=== PATIENT | male | born 1960 | race Caucasian/White ===

== ENCOUNTER 2019-10-04 15:47 | Inpatient (IN) | payer MEDICARE, MEDICAID ==
[2019-10-04] MEDS ORDERED: VISTARIL50 MG PO (17:51)
[2019-10-04] MEDS ORDERED: REMERON15 M2 PO (17:52)
[2019-10-04] MEDS ORDERED: NUPLAZID34 MG PO (17:52)
[2019-10-04] MEDS ORDERED: EXEL13.31 TD (17:54)
[2019-10-04] MEDS ORDERED: MOTRIN 600 MG E4 TAB PO (17:55)
[2019-10-04] MEDS ORDERED: BACLOFEN20 M1 PO (17:56)
[2019-10-04] MEDS ORDERED: BIOFREEZE118 ML T (17:57)
[2019-10-04] MEDS ORDERED: DEPAKOTE SPRIN125 MG PO ×2 (17:58→17:59)
[2019-10-04] MEDS ORDERED: ENTACAPONE200 M1 PO (18:00)
[2019-10-04] MEDS ORDERED: MIRALAX POWDER17 G1 PO (18:01)
[2019-10-04] MEDS ORDERED: LASIX20 MG PO (18:01)
[2019-10-04] MEDS ORDERED: MULTIVITAMINS1 EAC5 PO (18:02)
[2019-10-04] MEDS ORDERED: SINEMET 25-1001 EACH PO (18:04)
[2019-10-04 21:02] VITALS: BP 101/52
--- NOTE | 2019-10-04 21:02 | NUR ---
ROSEMARIE TYSON II a 59 year old M admitted via stretcher from the ADMITTING as a voluntary admission. Arrived on unit at 2101. ALLERGIES: NKA. Vital signs are: 98.1-78-18 101/52. The PATIENT'S POA GAVE VERBAL CONSENT FOR THE following forms with stated understanding: Authorization For The Release of Medical Information, Consent to Voluntary Admission and Hospitalization, Consent and Release Forms/Receipt of Rights, Acknowledgement of Advance Directive Information, Behavioral Health Consent Form, and Informed Consent of Medications. Admitted under the services of ROSEMARIE Dorman MD. A search was conducted and hazardous articles were removed. Client was oriented to the unit. JI BLANTON PATIENT CLOTHING LIST SIGNED BY MENTAL HEALTH WORKER AND THIS NURSE. PATIENT BROUGHT TO FLOOR BY [facility] X 1. PATIENT FROM [facility] AND THEN TRANSFERRED TO [facility]. PATIENT WITH BILATERAL SOFT HEELS. PATIENT WITH AREA TO RIGHT LATERAL AREA AND WITH DRY, FLAKY, FIRM SKIN TO LEFT LATERAL FOOT. PATIENT WITH BILATERAL BUNION AREAS WITH THICK, FLAKY SKIN. BILATERAL UPPER AND LOWER EXTREMITIES WITH SCATTERED SCABS AND AND SCATTERED ECCHYMOTIC AREAS IN VARIOUS STAGES OF HEALING. PATIENT WITH LEFT BLACK EYE. PATIENT WITH REDDEND BUTTOCKS. PATIENT WITH BILATERAL CONTRACTED HANDS. PATIENT WITH ABRASION TO LEFT HIP AREA. PHOTOGRAPH OF RIGHT LATERAL HEEL TAKEN ON ADMISSION
--- NOTE | 2019-10-04 21:38 | NUR ---
DR DAVILA UPDATED ABOUT PATIENT ADMISSION ON UNIT. PATIENT PLACED UNDER DR CALDWELL FOR MEDICAL MANAGEMENT
--- NOTE | 2019-10-04 21:50 | NUR ---
DR DAVILA ON UNIT TO SEE PATIENT. DR DAVILA AWARE OF SKIN CONCERNS AND TO PUT IN TREATMENT ORDERS. DR DAVILA SEEN AREA TO RIGHT LATERAL HEEL AND STAGED AREA DEEP TISSUE INJURY
--- NOTE | 2019-10-04 21:50 | NUR ---
DR DAVILA ON UNIT TO SEE PATIENT. DR DAVILA AWARE OF SKIN CONCERNS AND TO PUT IN TREATMENT ORDERS
--- NOTE | 2019-10-05 05:22 | NUR ---
JAH VICTORROSEMARIE [id number] Please refer to the physician's history and physical for past medical history, comorbid conditions, and allergies. Diagnosis: INTERMITTENT EXPLOSIVE DISORDER Barry Score: 15,AT RISK WOUND DESCRIPTIONS: Wound Number: 1 Location of the wound: right heel lateral aspect Type of wound: Unstageable Thickness: Full Size: 3.5cm x 2.5cm x <0.1cm Tunneling: none Undermining: none Sinus Tract: none Presence of Exudate: none Amount: None Color: Brown, red Odor: None Periwound Skin Appearance: Normal Wound edges: closed Pain (associated with wound): none at time of assessment How does patient state this happened? pt unable to state how this happened Wound Number: 2 Location of the wound: right plantar foot medial aspect Type of wound: unstageable ( hyperkeratotic ) Thickness: Full Size: 4.5cm x 3.7cm x <0.1cm Tunneling: none Undermining: none Sinus Tract: none Presence of Exudate: None Amount: None Color: [place] Odor: None Periwound Skin Appearance: Normal Wound edges: closed Pain (associated with wound): none at time of assessment How does patient state this happened? pt unable to state how this happened Wound Number: 3 Location of the wound: left plantar foot medial aspect Type of wound: unstageable ( hyperkeratotic ) Thickness: Full Size: 3.5cm x 3.5cm x <0.1cm Tunneling: none Undermining: none Sinus Tract: none Presence of Exudate: none Amount: None Color: [place] Odor: None Periwound Skin Appearance: Normal Wound edges: closed Pain (associated with wound): none at time of assessment How does patient state this happened? pt unable to state how this happened Wound Number: 4 Location of the wound: sacrum Type of wound: scar tissue Size: 5.0cm x 7.0cm x <0.1cm Tunneling: none Undermining: none Sinus Tract: none Presence of Exudate: none Amount: None Color: Red blanchable Odor: None Periwound Skin Appearance: Normal Wound edges: closed Pain (associated with wound): none at time of assessment How does patient state this happened? pt unable to state how this happened Patient has red blanchable area note to left hip. No drainage at time of assessment. No odor at time of assessment. Patient unable to state how this happend but has had multiple falls per who spoke with nurse caring for the patient. Patient has multiple scabbed areas noted to bilateral upper and bilateral lower extremities. No open areas noted at time of assessment. Patient also has ecchymotic areas noted to bilateral upper and bilateral lower extremities. Patient has ecchymotic area noted to left eye at time of assessment. Bilateral hands are contracted at time of assessment right more so than the left. Patient has several areas that are red and blanchable at time of assessment. Musty odor noted to left hand more so than the right hand. No drainage at time of assessment. Wash clothes provided for bilateral hands and 2x2 put in between fingers at time of assessment. Surface the patient is resting on: Proform SKIN PREVENTION RECOMMENDATION: 1. Pressure redistribution support surface as appropriate 2. Elevate heels 3. Remove boots/TEDS every shift and reapply 4. Head of bed 30 degrees as tolerated 5. Assess nutrition and hydration 6. Manage moisture 7. Avoid the use of containment devices while in bed 8. Use absorptive products on surfaces limit layers of linens on bed 9. Turn and reposition every 1-2 hours in bed and every 1 hour in chair as tolerated 10. Weight shifts every 15 minutes while up in chair 11. Offloading with pillows or device to keep heels elevated off bed 12. Monitor skin at least every shift 13. Inspect under medical devices twice a day WOUND TREATMENT RECOMMENDATIONS: Continue heel raiser pro boots to bilateral feet while in bed. Arterial studies to bilateral lower extremities Consult podaitry for possible debridement if stuides allow to right plantar and left plantar medial aspects of feet. Cleanse bilateral feet with soap and water and apply lac-hydrin bid. Consult PT and OT for bilateral hand contractures. Unstageable guidelines: Apply betadine to right lateral aspect of heel and cover with dsd daily and prn for soiling.
--- NOTE | 2019-10-05 06:46 | NUR ---
PATIENT SLEPT 6 HOURS OF INTERRUPTED SLEEP THROUGHOUT SHIFT. Q 15 MINUTE CHECKS MAINTAINED. 24 HR chart check completed.
[2019-10-05 06:53] LABS: BASO % 0.5 % (0.0-1.0); EOS # 0.1 10*3/uL (0.0-0.4); EOS % 1.5 % (1.0-4.0); HEMOGLOBIN 11.6 g/dl (14.0-18.0); LYMPH # 1.6 10*3/uL (1.3-4.4); LYMPH % 22.1 % (27.0-41.0); MEAN CELL VOLUME 104.2 fl (80.0-94.0); MEAN CORPUSCULAR HGB 34.5 pg (27.0-31.0); MEAN CORPUSCULAR HGB CONC 33.1 g/dl (33.0-37.0); MEAN PLATELET VOLUME 9.9 fl (9.6-12.3); MONO # 0.6 10*3/uL (0.1-1.0); MONO % 8.7 % (3.0-9.0); NEUT # 4.9 10*3/uL (2.3-7.9); NEUT % 66.9 % (47.0-73.0); PLATELET COUNT AUTOMATED 255 10*3/uL (130-400); RED BLOOD COUNT 3.36 10*6/uL (4.50-5.90); RED CELL DISTRI WIDTH 12.5 % (0-14.5); WHITE BLOOD COUNT 7.3 10*3/uL (4.8-10.8)
[2019-10-05 07:08] LABS: ALBUMIN 3.5 gm/dl (3.1-4.5); ALKALINE PHOSPHATASE 65 U/L (45-117); BUN 25 mg/dl (7-24); CHLORIDE 110 mmol/L (98-107); CHOLESTEROL 113 mg/dL (<200); CREATININE 0.63 mg/dL (0.70-1.30); HDL CHOLESTEROL 36 mg/dl (40-60); LDL CHOLESTEROL 65 mg/dL (9-159); SGOT/AST 10 IU/L (3-35); SGPT/ALT 19 U/L (12-78); SODIUM 143 mmol/L (136-145); TOTAL PROTEIN 6.8 gm/dL (6.4-8.2); TRIGLYCERIDES 62 mg/dl (<150); VLDL CHOLESTEROL 12 mg/dL (6-40)
[2019-10-05 08:00] VITALS: BP 130/82
--- NOTE | 2019-10-05 08:15 | NUR ---
Treatment Plan meeting was held with ANA Medley, RN, AT, COMMISSIONER OF INTERNAL REVENUE-S and Line Up Examiner in attendance. Plan for discharge next week. Pt. came to [facility] from [facility]. Will reach out to facility today to discuss discharge planning.
--- NOTE | 2019-10-05 08:20 | NUR ---
PHYSICAL THERAPY Screen received if pt has a decline in functional status please consult PT Josefina Edouard PT
[2019-10-05 09:40] LABS: VITAMIN D, 25-HYDROXY 27.4 ng/mL (30-100)
--- NOTE | 2019-10-05 11:20 | NUR ---
Patient not available for Occupational Therapy evaluation as he is in group therapy session. Daniela De Los Santos OTR/l
--- NOTE | 2019-10-05 11:26 | NUR ---
Dr. Bridges notified of wound care recommendations.
--- NOTE | 2019-10-05 11:38 | NUR ---
AM GROUP PT DID NOT ATTEND MORNING GROUP THERAPY. PT WAS IN BED RESTING
--- NOTE | 2019-10-05 11:52 | NUR ---
ALERT TO SELF WITH CONFUSION NOTED. NO HALLUCINATIONS OR DELUSIONS NOTED. NO SI/HI NOTED. PT SLEPT THE MAJORITY OF THE MORNING WITH AWAKENING FOR MEDICATIONS AND EATING. AMMONIA LEVEL ELEVATED. DENY RUIZ, ANA UPDATED. NEW ORDER RECEIVED. NO AGITATION OR AGGRESSIVENESS NOTED. PT DOES NOT APPEAR TO BE ABLE TO WALK. ASSISTED AND TRANSFERRED X 2 STAFF. FEEDING SELF AT THIS TIME. PODIATRY CONSULTED FOR NAIL CARE. FALL AND ASSULATIVE PRECAUTIONS MAINTAINED. BEHAVIORS MONITORED WITH Q15 MINUTE SAFETY CHECKS. SEE [facility] FLOWSHEET FOR SPECIFIC MONITORING.
--- NOTE | 2019-10-05 12:34 | NUR ---
Spoke with Judi in admissions at [facility] to discuss discharge Planning. Pt. is [facility] and will return to facility at discharge. Pt. was nursing home care at facility and was receiving no therapies at time of discharge.
--- NOTE | 2019-10-05 15:25 | NUR ---
Nursing screen and occupational therapy referral received. Thank you. Daniela De Los Santos OTR/l
--- NOTE | 2019-10-05 15:33 | NUR ---
PM GROUP/MOVIE PT WAS PRESENT FOR AFTERNOON GROUP THERAPY RECLINED IN A FELIX CHAIR WATCHING THE MOVIE. PT WOULD CALL ME OVER AND ASK SOMETHING BUT I WAS UNABLE TO UNDERSTAND HIM.
--- NOTE | 2019-10-05 15:47 | NUR ---
Met with pt and pt's Rosa briefly. RN was also present. Rosa provided some of pt's history. RN was in the process of answering Rosa's questions when this typewriter assembly and parts inspector excused herself from the room.
[2019-10-05 20:00] VITALS: BP 135/63
--- NOTE | 2019-10-05 23:25 | NUR ---
P-CONFUSION I-REDIRECTION WITH 1:1 THERAPEUTIC INTERVENTIONS AND PRESENT REALITY. EDUCATE AND ENCOURAGE MEDICATION COMPLIANCE R-PATIENT MEDICATION COMPLIANT. PATIENT CONTINUES TO WEAR BILATERAL HEEL PROTECTORS AND FEET ARE ELEVATED. PATIENT PROVIDED NOURISHMENT AND FLUIDS AT HS. PATIENT WITH SOFT, NONSENSICAL SPEECH AT HS. PATIENT INTERACTING WITH NURSING STAFF. PATIENT TURNED AND REPOSITIONED IN BED P-CONTINUE TO ENCOURAGE MEDICATION COMPLIANCE, CONTINUE TO PRESENT REALITY, ENCOURAGE GROUP THERAPY WHILE AWAKE
--- NOTE | 2019-10-06 06:05 | NUR ---
PATIENT SLEPT 4 HOURS OF INTERRUPTED SLEEP THROUGHOUT SHIFT. Q 15 MINUTE CHECKS MAINTAINED. 24 HR chart check completed.
--- NOTE | 2019-10-06 06:54 | NUR ---
URINE SPECIMEN COLLECTED VIA STRAIGHT CATH. STERILE ATTEMPT X 1. URINE YELLOW WITH OUTPUT OF 100ML. PATIENT TOLERATED WITHOUT DIFFICULTY. PATIENT INCONTINENT OF BLADDER PRIOR TO CATHERIZATION FOR SPECIMEN COLLECTION
[2019-10-06 07:07] LABS: BILIRUBIN NEGATIVE (NEGATIVE); BLOOD NEGATIVE (NEGATIVE); CLARITY SL CLOUDY (CLEAR); COLOR YELLOW (YELLOW); GLUCOSE NEGATIVE (NEGATIVE); KETONE NEGATIVE (NEGATIVE); LEUKO ESTERASE NEGATIVE (NEGATIVE); NITRITE NEGATIVE (NEGATIVE); SPECIFIC GRAVITY 1.015 (1.005-1.030); UROBILINOGEN 0.2 E.U./dl (0.2-1.0)
[2019-10-06 07:22] LABS: BACTERIA 4+; WBC 51-100 wbc/hpf (0-5)
[2019-10-06 07:54] VITALS: BP 115/64
--- NOTE | 2019-10-06 12:00 | NUR ---
AM GROUP/LEISURE SKILLS PT IN ATTENDANCE BUT RELAXING IN COMFY CHAIR IN BACK OF ROOM. PT OPENS EYES ON AND OFF BUT UNABLE TO PARTICIPATE DUE TO LEVELS OF COGNTION. PT EXPRESSES NO AGITATION OR ASSAULTIVE BEHAVIORS AT THIS TIME. PT WILL CONTINUE TO ATTEND FUTURE GROUP SESSIONS.
--- NOTE | 2019-10-06 15:40 | NUR ---
PM GROUP/BINGO! PT ATTENDED BUT CHOSE NOT TO PLAY BINGO. PT SITTING IN BACK OF ROOM IN COMFY CHAIR. PT GOT UP AND BEGAN TO WANDER COULD NOPT EXPRESS NEEDS TO THIS STAFF DUE TO GARBLED SPEECH. PT DID NOT BECOME ASSAULTIVE OR AGITATED AT THIS TIME. PT WILL CONTINUE TO ATTEND AND BE ENCOURAGED TO PARTICIPATE TO BETS OF PT ABILITY.
--- NOTE | 2019-10-06 18:24 | NUR ---
PT CONFUSED. SPEECH NONSENSICAL. PT ASSISTED X 1 TO WALK TO BATHROOM, PROVIDED WITH SNACK AND FLUIDS, PHYSICAL NEEDS ANTICIPATED BY STAFF D/T PT'S INABILITY TO EXPRESS THEM. PT WALKS WITH SHUFFLING/SWAYING GAIT. WILL TAKE SNACK AND FLUIDS WHEN ASSISTED BY STAFF. PT REMAINS CONFUSED WITH NONSENSICAL SPEECH. UNRECEPTIVE TO REORIENTATION D/T POOR COGNITION. WILL CONTINUE TO MONITOR PT AND ANTICIPATE NEEDS. WILL CONTINUE TO REDIRECT AND REORIENT APPROPRIATE. Q 15 MIN MONITORING PER POLICY FOR SAFETY.
[2019-10-06 19:58] VITALS: BP 119/72
--- NOTE | 2019-10-06 21:49 | NUR ---
P--CONFUSION, ANGER I--EXPLAINED ALL MEDICATIONS TO HIM PRIOR TO CRUSHING AND PUTTING IN APPLESAUCE. GAVE LACTULOSE AND MIRLAX PER ORDERS. EMOTIONAL SUPPORT PROVIDED. ATTEMPTED 1:1 R--OK. MEDICATION COMPLIANT. DRANK FLUIDS. UNABLE TO RESPOND TO 1:1 P--MONITOR FOR CHANGES IN BEHAVIOR/MOOD. MONITOR SAFETY. CONTINUE Q 15 MINUTE AND PRN SAFETY CHECKS
--- NOTE | 2019-10-06 22:30 | NUR ---
ATIVAN IM GIVEN AT 2224PM HE WAS ATTEMPTING TO CLIMB OUT OF BED, KICKING AND PUNCHING AT STAFF. UNABLE TO REDIRECT. ALL TALKING INCREASED IS AGGITATION AND PUNCHING. TOOK 4 STAFF MEMBERS TO HOLD CLIENT FROM INJURING HIMSELF.
--- NOTE | 2019-10-06 23:00 | NUR ---
ATIVAN STARTING TO BE EFFECTIVE. MOVING SELF IN BED. KICKING LEGS UP AND DOWN SLOWLY BUT NOT ATTEMPTING TO HIT
--- NOTE | 2019-10-07 04:19 | NUR ---
24 HR chart check completed.
--- NOTE | 2019-10-07 06:08 | NUR ---
SLEPT APPROX 1.5 HOURS
[2019-10-07 07:53] VITALS: BP 132/80
--- NOTE | 2019-10-07 17:17 | NUR ---
PT SLEEPING AND REFUSED SOME MEDICATIONS DUE TO BEING DROWSY. NO COMBATIVENESS NOTED. WILL CONTINUE TO MONITOR BEHAVIORS WITH Q15 MINUTE SAFETY CHECKS. SEE [facility] FLOWSHEET FOR SPECIFIC MONITORING.
[2019-10-07 20:00] VITALS: BP 128/78
--- NOTE | 2019-10-07 22:13 | NUR ---
RESISTIVE WITH ALL HANDS ON CARE. EVEN EXPLAINING WHAT IS GOING ON HE IS RESISTIVE. AUDIBLE RONCHI NOTED WITH WHITISH DROOL FROM MOUTH. PEG TUBE IN PLACE WITH NO RESIDUAL. MEDS GIVEN. TF IN PROGRESS AT 65ML/HR WILL CONTINUE TO MONITOR FOR CHANGE IN MOOD/BEHAVIOR AND Q 15 MIN AND PRN FOR SAFETY
--- NOTE | 2019-10-08 02:55 | NUR ---
24 HR chart check completed.
[2019-10-08 07:44] VITALS: BP 103/46
--- NOTE | 2019-10-08 08:15 | NUR ---
Treatment Plan meeting was held with Dr. Denney, ANA Medley, RN, AT, STORE LOSS PREVENTION MANAGER-S and Rn Clinical Appeals. Plan for discharge at the end of the week. Pt. to return to [facility] at discharge. Clinical Updates faxed to facility.
--- NOTE | 2019-10-08 09:51 | NUR ---
DR MCFADDEN NOTIFIED OF URINE CULTURE RESULTS
--- NOTE | 2019-10-08 10:32 | NUR ---
PT SPIT OUT ALL MORNING MEDICATIONS. WILL PASS ON TO NOT FEED CLIENT TILL MEDICATION PASS COMPLETED HE EATS WELL AT MEALS TILL FULL
--- NOTE | 2019-10-08 11:41 | NUR ---
AM GROUP PT WAS PRESENT FOR MORNING GROUP THERAPY RECLINED IN A FELIX CHAIR SLEEPING. PT DID NOT WAKE DURING GROUP.
--- NOTE | 2019-10-08 14:22 | NUR ---
P: NON COMPLAINT WITH MEDICATIONS I: ONE ON ONE- ENCOURAGING PATIENT TO TAKE MEDICATION. ATTEMPTED TO GIVE MEDICATIONS PROIR TO LUNCH. PATIENT SPIT OUT 1/2 OF MEDICATIONS. R: INEFFECTIVE. PATIENT IS ALERT TO VOICE/TOUCH WITH CONFUSION. LONG/SHORT TERM MEMORY DEFICITS NOTED. MOOD IS DEPRESSED/FLAT. NO RESPONSE TO INTERNAL STIMULI. NO VOICED STATEMENTS OF HI/SI OR PAIN. RESTING WITH EYES CLOSED MOST OF THE DAY, UP IN FELIX CHAIR. SLEPT THROUGH GROUP SESSIONS. Q 15 MINUTE SAFETY CHECKS. 2 PERSON ASSIST WITH ACTIVITIES OF DAILY LIVING, INCONTINENT OF BOWEL AND BLADDER. SET UP FOR MEALS, ASSIST NEEDED. SLEPT THROUGH BREAKFAST/LUNCH. MONITOR FOR AGGRESSION, EXIT SEEKING AND MEAL INTAKE; PROVIDE ONE ON ONE AND REDIRECTION NEEDED. P:
--- NOTE | 2019-10-08 15:29 | NUR ---
PM GROUP PT WAS PRESENT FOR AFTERNOON GROUP RECLINED IN A FELIX CHAIR SLEEPING. PT WOKE AND WAS REPOSITIONED AND MOVED TO THE TABLE WITH PEERS. PT SOON FELL BACK TO SLEEP.
[2019-10-08 19:58] VITALS: BP 142/71
--- NOTE | 2019-10-08 20:42 | NUR ---
EVENING/LEISURE SKILLS PT UNABLE TO ATTEND DUE TO SLEEPING AT THIS TIME.
--- NOTE | 2019-10-08 22:09 | NUR ---
Patient alert to self only with confusion. Patient resistive with hands on care. No signs of any responding to internal stimuli noted. Patient compliant with HS medication with much encouragement and meds crushed and mised in ice cream. Patient unreceptive to redirecting/reorienting due to decreased cognition. Plan to continue to encourage medication compliance. Continue to attempt to redirect/reorient when needed. Will continue to monitor moods/behaviors. Q 15 minute safety checks continued and maintained. See [facility] flowsheet for further documentation.
--- NOTE | 2019-10-09 00:15 | NUR ---
24 HR chart check completed.
--- NOTE | 2019-10-09 04:26 | NUR ---
Upon discharge recommend patient to follow up for wound care in outpatient setting continue current wound care orders at discharging facility.
--- NOTE | 2019-10-09 05:41 | NUR ---
Patient slept approx. 5.5 hours throughout shift with a few awakenings. Q 15 minute safety checks continued and maintained.
--- NOTE | 2019-10-09 08:00 | NUR ---
Treatment Plan meeting was held with Dr. Denney, ANA Medley, RN, AT, WET PROCESS TECHNICIAN-S and [employer] in attendance. Plan for discharge next week. Pt. will return to [facility].
--- NOTE | 2019-10-09 08:39 | NUR ---
Dr. Phillips notified of wound care recommendations.
[2019-10-09 08:56] VITALS: BP 133/62
--- NOTE | 2019-10-09 11:30 | NUR ---
AM GROUP PT WAS PRESENT FOR MORNING GROUP THERAPY RECLINED IN A FELIX CHAIR SLEEPING. PT DID NOT WAKE DURING GROUP
[2019-10-09 12:04] LABS: BASO % 0.4 % (0.0-1.0); EOS % 0.5 % (1.0-4.0); HEMOGLOBIN 13.7 g/dl (14.0-18.0); LYMPH # 1.2 10*3/uL (1.3-4.4); LYMPH % 14.7 % (27.0-41.0); MEAN CELL VOLUME 102.8 fl (80.0-94.0); MEAN CORPUSCULAR HGB 34.3 pg (27.0-31.0); MEAN CORPUSCULAR HGB CONC 33.4 g/dl (33.0-37.0); MEAN PLATELET VOLUME 9.7 fl (9.6-12.3); MONO # 0.8 10*3/uL (0.1-1.0); NEUT # 5.8 10*3/uL (2.3-7.9); NEUT % 74.3 % (47.0-73.0); PLATELET COUNT AUTOMATED 240 10*3/uL (130-400); RED BLOOD COUNT 3.99 10*6/uL (4.50-5.90); RED CELL DISTRI WIDTH 12.4 % (0-14.5); WHITE BLOOD COUNT 7.9 10*3/uL (4.8-10.8)
[2019-10-09 12:22] LABS: ALKALINE PHOSPHATASE 93 U/L (45-117); BUN 18 mg/dl (7-24); CHLORIDE 105 mmol/L (98-107); CREATININE 0.61 mg/dL (0.70-1.30); SGOT/AST 31 IU/L (3-35); SGPT/ALT 13 U/L (12-78); SODIUM 139 mmol/L (136-145); TOTAL PROTEIN 7.6 gm/dL (6.4-8.2)
--- NOTE | 2019-10-09 15:31 | NUR ---
PM GROUP PT WAS PRESENT FOR AFTERNOON GROUP THERAPY RECLINED IN A FELIX CHAIR SLEEPING. PT DID NOT WAKE DURING GROUP.
--- NOTE | 2019-10-09 19:07 | NUR ---
PATIENT IS ALERT TO PERSON WITH CONFUSION; LONG/SHORT TERM MEMORY DEFICITS. MOOD IS STABLE, NO AGGRESSION DURING HANDS ON CARE. NO RESPONSE TO INTERNAL STIMULI. NO VOICED STATEMENT OF HI/SI OR PAIN. MEDICATION COMPLAINT. Q 15 MINTUE SAFETY CHECKS MAINTAINED. 2 PERSON ASSIST WITH ACTIVITIES OF DAILY LIVING, INCONTINENT OF BOWEL AND BLADDER. SET UP FOR MEALS, INTAKES ARE GOOD WITH ADEQUATE FLUIDS. CONTINUE TO MONITOR FOR AGGRESSION, EXIT SEEKING AND REFUSING MEDICATIONS. PROVIDE ONE ON ONE AND REDIRECTIONS.
[2019-10-09 20:00] VITALS: BP 118/66
--- NOTE | 2019-10-09 20:30 | NUR ---
EVENING/BINGO PT IN ATTENDANCE BUT RESTED IN RECLINER ENTIRE TIME WITHOUT WAKING.
[2019-10-09 21:08] LABS: BILIRUBIN NEGATIVE (NEGATIVE); BLOOD NEGATIVE (NEGATIVE); CLARITY CLEAR (CLEAR); COLOR YELLOW (YELLOW); GLUCOSE NEGATIVE (NEGATIVE); KETONE NEGATIVE (NEGATIVE); LEUKO ESTERASE NEGATIVE (NEGATIVE); NITRITE NEGATIVE (NEGATIVE); SPECIFIC GRAVITY 1.015 (1.005-1.030)
[2019-10-09 21:19] LABS: BACTERIA TRACE
--- NOTE | 2019-10-09 21:41 | NUR ---
PT COOPERATIVE WITH MEDICATIONS THIS EVENING, SPOKE MINIMAL WITH THIS NURSE DURING INTERACTIONS, PT RESPONDED WITH YES OR NO ANSWERS. CONSUMED SNACK WITH ASSIST OF STAFF FEEDING HIM, HE WAS THEN TRANSFERED TO BED VIA 2 ASSIST. PT TOLERATED WELL. PT STRAIGHT CATHED FOR 400CC BRIGHT YELLOW/ORANGE URINE NO SEDIMENT NOTED. PT REQUIRED REDIRECTION AND CALMING WITH INSTRUCTION DURING CATH. TOLERATED WELL. SAMPLE SENT. NO SI/HI OR DELUSIONS NOTED BY STAFF DURING INTERACTION CONTINUE TO MONITOR BEHAVIORS, MEDICATION AND 15 MIN CHECKS AT THIS TIME
--- NOTE | 2019-10-09 23:55 | NUR ---
PT IN BED RESTLESS, ATTEMPTING TO KICK LEGS IN AIR, SHIFTING, YELLING OUT, PT AT ONE POINT ON HIS HANDS AND KNEES IN BED. PT GIVEN TYLENOL FOR DISCOMFORT, AND VISTERAL FOR RESTLESSNESS.
--- NOTE | 2019-10-10 02:55 | NUR ---
PT RESTING AT THIS TIME
--- NOTE | 2019-10-10 03:00 | NUR ---
PT RESTING QUIETLY, AREA TO BUTTOCKS HAS BEEN VIEWED AND CHECK BY WOUND NURSE, NAIL TECH AND DR HARDY NOTIFIED OF AREA TO SACRUM
--- NOTE | 2019-10-10 05:23 | NUR ---
JAH VICTORROSEMARIE [id number] Please refer to the physician's history and physical for past medical history, comorbid conditions, and allergies. Diagnosis: INTERMITTENT EXPLOSIVE DISORDER Barry Score: 18,AT RISK WOUND DESCRIPTIONS: (Progression of skin impairment) Wound Number: 4 Location of the wound: sacrum Type of wound: deep tissue pressure injury Size: 5.0cm x 7.0cm x <0.1cm Tunneling: none Undermining: none Sinus Tract: none Presence of Exudate: Light Amount: Serosanguineous Color: dark red, purple Odor: None Periwound Skin Appearance: Normal Wound edges: approximated Pain (associated with wound): none at time of assessment How does patient state this happened? pt unable to state how this happened Surface the patient is resting on: Proform SKIN PREVENTION RECOMMENDATION: 1. Pressure redistribution support surface as appropriate 2. Elevate heels 3. Remove boots/TEDS every shift and reapply 4. Head of bed 30 degrees as tolerated 5. Assess nutrition and hydration 6. Manage moisture 7. Avoid the use of containment devices while in bed 8. Use absorptive products on surfaces limit layers of linens on bed 9. Turn and reposition every 1-2 hours in bed and every 1 hour in chair as tolerated 10. Weight shifts every 15 minutes while up in chair 11. Offloading with pillows or device to keep heels elevated off bed 12. Monitor skin at least every shift 13. Inspect under medical devices twice a day WOUND TREATMENT RECOMMENDATIONS: D/C moist associated skin damage guidelines. Cleanse sacrum with soap and water pat area dry then apply calazime every shift and prn for soiling. Continue wheelchair cushion when oob.
[2019-10-10 08:05] VITALS: BP 106/60
--- NOTE | 2019-10-10 09:25 | NUR ---
DR. CALDWELL ON UNIT TO ASSESS PT, UPDATE PROVIDED.
--- NOTE | 2019-10-10 09:27 | NUR ---
Dr. Wills notified of wound care recommendations.
--- NOTE | 2019-10-10 09:27 | NUR ---
Dr. Bridges notified of wound care recommendations.
--- NOTE | 2019-10-10 11:44 | NUR ---
AM GROUP PT DID NOT ATTEND MORNING GROUP THERAPY. PT WAS IN QUIET ROOM RESTING. PT IS UNABLE TO PARTICIPATE AT THIS TIME DUE TO COGNITIVE IMPAIRMENT
--- NOTE | 2019-10-10 12:15 | NUR ---
Left Message for Judi at [facility] to notify of plans to discharge next week. Provided with updates and faxed clinical updates to Facility.
--- NOTE | 2019-10-10 15:55 | NUR ---
P: PT REFUSED ALL AM/1300 PO MEDS. PT REFUSED BREAKFAST AND LUNCH. PT REFUSING TO ACKNOWLEDGE STAFF WHEN THEY ARE SPEAKING TO HIM, PT SQEEZING EYES SHUT. I: ENCOURAGE MED COMPLIANCE, ENCOURAGE PO INTAKE, ENCOURAGE GROUP PARTICIPATION AND SOCIALIZATION, PROVIDE EMOTIONAL SUPPORT AND 1:1 FOR PT TO VOICE FEELINGS R: PT CONTINUES TO REFUSE TO ACKNOWLEDGE STAFF WHEN THEY ARE SPEAKING TO HIM AND SQUEEZES HIS EYES SHUT. PT REFUSED BREAKFAST AND TOOK 1 BITE OF LUNCH. PT CONTINUES TO REFUSE ALL AM/1300 PO MEDS. NO HALLUCINATIONS OR DELUSIONS NOTED. NO SUICIDAL THOUGHTS OR BEHAVIORS NOTED. PT UP TO A GERICAHIR D/T REFUSING TO AMBULATE THIS SHIFT. PT INCONTINENT OF BOWEL AND BLADDER, CARE PROVIDED NEEDED. P: MONITOR PT BEHAVIORS ON Q15 MIN SAFETY CHECKS, ENCOURAGE MED COMPLIANCE, PROVIDE EMOTIONAL SUPPORT AND 1:1 FOR PT TO VOICE FEELINGS, ENCOURAGE PO INTAKE.
--- NOTE | 2019-10-10 17:22 | NUR ---
/POA UPDATED ON AREA TO COCCYX.
[2019-10-10 19:27] VITALS: BP 108/64
--- NOTE | 2019-10-10 20:43 | NUR ---
FED CHOCOLATE MILK WITH A 10cc SYRINGE. DRANK FROM SYRINGE LIKE A BABY BOTTLE. THEN USED 60cc CATH TIP SYRINGE FOR MEDICATIONS WHICH HE ALSO DRANK LIKE A BABY BOTTLE
--- NOTE | 2019-10-10 21:15 | NUR ---
Patient alert to self only with confusion. Patient resistive with hands on care. No signs of any responding to internal stimuli noted. Patient compliant with HS medication with much encouragement and meds crushed amd mixed with water then put in 60 cc syringe,patient drank from it like a baby bottle. Patient unreceptive to redirecting/reorienting due to decreased cognition. Plan to continue to encourage medication compliance. Continue to attempt to redirect/reorient when needed. Will continue to monitor moods/behaviors. Q 15 minute safety checks continued and maintained. See [facility] flowsheet for further documentation.
--- NOTE | 2019-10-11 | NUR ---
Patient up ambulating in hallway in [facility] for 20 minutes. Tolerated well. Patient then placed back in bed and went to sleep.
--- NOTE | 2019-10-11 00:23 | NUR ---
24 HR chart check completed.
--- NOTE | 2019-10-11 05:28 | NUR ---
Patient slept approx. 8 hours throughout shift with 1 awakening. Q 15 minute safety checks continued and maintained.
[2019-10-11 08:00] VITALS: BP 107/55
--- NOTE | 2019-10-11 09:00 | NUR ---
Treatment Plan meeting was held with Dr. Denney, RN and Corporate Financial Analyst. Plan for discharge Next week. Pt. will return to [facility] at discharge.
--- NOTE | 2019-10-11 09:13 | NUR ---
Dr. JAMES notified of wound care recommedations.
--- NOTE | 2019-10-11 10:07 | NUR ---
DR CALDWELL ON UNIT TO ASSESS PT, UPDATE PROVIDED.
--- NOTE | 2019-10-11 11:32 | NUR ---
AM GROUP/SISYPHUS PT DID NOT ATTEND MORNING GROUP THERAPY. PT WAS IN BED RESTING.
--- NOTE | 2019-10-11 13:57 | NUR ---
ORDER PLACED FOR PT TO BE EVALUATED BY PHYSICAL THERAPY D/T PT STATING HE HAS HAD A DECLINE IN AMBULATION SINCE ADMISSION. PT AMBUALTED A SHORT DISTANCE WITH 2 STAFF ASSIST, GAIT UNSTEADY. WILL CONTINUE TO ENCOURAGE PT TO AMBUALTE WITH STAFF ASSISTANCE.
--- NOTE | 2019-10-11 14:36 | NUR ---
PHYSICAL THERAPY Anjum completed pt moderate complexity level [id number] recomend SNF vs f/u therapy at [place]. PT to work on ROM/strengthening, Sitting/standing balance, Ambulation and safety. Josefina Edouard PT
--- NOTE | 2019-10-11 15:36 | NUR ---
PM GROUP/FINGER PAINTING PT IS UNABLE TO PARTICIPATE IN GROUP AT THIS TIME DUE TO COGNITIVE IMPAIRMENT. PT SLEPT THRU GROUP RECLINED IN A FELIX CHAIR
--- NOTE | 2019-10-11 15:49 | NUR ---
NO ADVERSE MOODS OR BEHAVIORS NOTED AT THIS TIME. PT ALERT TO PERSON ONLY, CONFUSION AND SHORT TERM MEMORY DEFICITS NOTED PER PT BASELINE. PT MED COMPLIANT WITHOUT DIFFICULRT, UNABLE TO PROVIDE MED EDUCATION D/T COGNITION. PT CALM, COOPERATIVE WITH STAFF DURING CARE. NO HALLUCINATIONS OR DELUSIONS NOTED. NO SUICIDAL THOUGHTS OR BEHAVIORS NOTED. PT UP TO A GERICHAIR D/T INABILITY TO AMBULATE INDEPEDNENTLY. PT WILL AMBULATE WITH 2 STAFF ASSIST, GAIT UNSTEADY. PT WAS EVALUATED BY PHYSICAL THERAPY TODAY, WHO STATED THEY WILL CONTINUE TO WORK WITH PT. PT CONTINENT OF OF BOWEL AND BLADDER, EPISODES OF INCONTINENCE NOTED, CARE PROVIDED NEEDED. PLAN IS TO MONITOR PT BEHAVIORS ON Q15 MIN SAFETY CHECKS, ENCOURAGE MED COMPLIANCE, PROVIDE EMOTIONAL SUPPORT AND 1:1 FOR PT TO VOICE FEELINGS.
[2019-10-11 19:40] VITALS: BP 106/62
--- NOTE | 2019-10-12 00:10 | NUR ---
PT: PT HAS BEEN CONFUSED AND SLEEPY DURING EVENING TIME. PT HAS BEEN COOPERATIVE DURING HS CARES. I: PT HAS HAD 1:1 EMOTIONAL SUPPORT, REORIENT APPROPRIATE. R: PT TOOK ALL HIS MEDICATION AND CONT. TO HAVE INTERMITTENT CONFUSION, PT IS SLEEPING AT THIS TIME. P: CONTINUE TO MONITOR FOR HALLUCINAITIONS/DELUSIONS, PROVIDE REORIENTATION, REDIRECTION APPROPRIATE, CONTINUE TO MONITOR AGGRESSION. CONTINUE TO MONITOR Q 15 MIN. PER POLICY FOR SAFETY.
--- NOTE | 2019-10-12 06:09 | NUR ---
PT. SLEPT APPROX. 8 HOURS THOUGHT SHIFT. Q 15 MIN. SAFETY CHECKS CONT. AND MAINTAINED.24 HR chart check completed.
--- NOTE | 2019-10-12 07:50 | NUR ---
PHYSICAL THERAPY Patient seen this am for therapy visit and was supine in bed upon therapist arrival. Patient identified by name / on wristband and was joined by OT assistant chief engineer for observation only. Patient presented with initial increased Lethargic behaviour and needed both verbal / tactile cues to arouse prior to performing supine to sit transfer, MOD A. Patient presented with increased LE Rigidity, tolerating several minutes static EOB sit to fully awaken. Patient then able to transfer sit to stand UROLOGY TEACHER/MIN and completed SPT to Lisa chair, requiring v/c for safe step sequence. Patient also needed v/c for proper hand placement prior to sitting down and remained in Lisa chair, semi reclined with lap tray / body alarm. Patient transported to activity room awaiting breakfast under U staff Supervision. Will continue per POC as tolerated, total treatment time 13 minutes. Shlomo Degroot, TRANSFER CAR OPERATOR
--- NOTE | 2019-10-12 08:00 | NUR ---
Treatment Plan meeting was held with ANA Medley, RN, AT, GRAIN COMBINE DRIVER-S and Mother Repairer in attendance. Plan for discharge next week. Pt. will return to [facility].
--- NOTE | 2019-10-12 08:10 | NUR ---
JAH VICTORROSEMARIE [id number] Please refer to the physician's history and physical for past medical history, comorbid conditions, and allergies. Diagnosis: INTERMITTENT EXPLOSIVE DISORDER Barry Score: 18,AT RISK WOUND DESCRIPTIONS: Wound Number: 1 Location of the wound: right heel lateral aspect Type of wound: Unstageable Thickness: Full Size: 3.5cm x 2.5cm x <0.1cm Tunneling: none Undermining: none Sinus Tract: none Presence of Exudate: none Amount: None Color: Brown, red Odor: None Periwound Skin Appearance: Normal Wound edges: closed Pain (associated with wound): none at time of assessment How does patient state this happened? pt unable to state how this happened Wound Number: 2 Location of the wound: right plantar foot medial aspect Type of wound: unstageable ( hyperkeratotic ) Thickness: Full Size: 3.5cm x 3.0cm x <0.1cm Tunneling: none Undermining: none Sinus Tract: none Presence of Exudate: None Amount: None Color: [place] Odor: None Periwound Skin Appearance: Normal Wound edges: closed Pain (associated with wound): none at time of assessment How does patient state this happened? pt unable to state how this happened Wound Number: 3 Location of the wound: left plantar foot medial aspect Type of wound: unstageable ( hyperkeratotic ) Thickness: Full Size: 3.0cm x 2.5cm x <0.1cm Tunneling: none Undermining: none Sinus Tract: none Presence of Exudate: none Amount: None Color: [place] Odor: None Periwound Skin Appearance: Normal Wound edges: closed Pain (associated with wound): none at time of assessment How does patient state this happened? pt unable to state how this happened Wound Number: 4 Location of the wound: sacrum Type of wound: Deep tissue pressure injury Size: 5.0cm x 7.0cm x <0.1cm Tunneling: none Undermining: none Sinus Tract: none Presence of Exudate: Light Amount: Serosanguineous Color: dark red, purple Odor: None Periwound Skin Appearance: Normal Wound edges: closed Pain (associated with wound): none at time of assessment How does patient state this happened? pt unable to state how this happened Patient continues to have red blanchable area note to left hip. No drainage at time of assessment. No odor at time of assessment. Patient continues to have multiple scabbed areas noted to bilateral upper and bilateral lower extremities. No open areas noted at time of assessment. Patient also has ecchymotic areas noted to bilateral upper and bilateral lower extremities. Patient has ecchymotic area noted to left eye at time of assessment. Bilateral hands are contracted at time of assessment right more so than the left. Patient has several areas that are red and blanchable at time of assessment. Musty odor noted to left hand more so than the right hand. No drainage at time of assessment. Spoke with therapy and they stated they will try and see him today and may order splints he does where splints where he came from at the nursing facility per therapy. Surface the patient is resting on: Proform SKIN PREVENTION RECOMMENDATION: 1. Pressure redistribution support surface as appropriate 2. Elevate heels 3. Remove boots/TEDS every shift and reapply 4. Head of bed 30 degrees as tolerated 5. Assess nutrition and hydration 6. Manage moisture 7. Avoid the use of containment devices while in bed 8. Use absorptive products on surfaces limit layers of linens on bed 9. Turn and reposition every 1-2 hours in bed and every 1 hour in chair as tolerated 10. Weight shifts every 15 minutes while up in chair 11. Offloading with pillows or device to keep heels elevated off bed 12. Monitor skin at least every shift 13. Inspect under medical devices twice a day WOUND TREATMENT RECOMMENDATIONS: Continue heel raiser pro boots to bilateral feet while in bed Contine wheelchair cushion when oob. Continue unstageable guidelines to right lateral aspect of heel Continue dressing change to sacrum calazime every shift and prn for soiling Continue lac-hydrin BID to bilateral feet.
[2019-10-12 08:22] VITALS: BP 102/67
--- NOTE | 2019-10-12 11:31 | NUR ---
AM GROUP PT WAS PRESENT FOR MORNING GROUP THERAPY RECLINED IN A FELIX CHAIR SLEEPING. PT DID NOT WAKE DURING GROUP
--- NOTE | 2019-10-12 12:30 | NUR ---
PHYSICAL THERAPY Pt seen on unit with co-treat with OT. Pt up in gerrichair with pressure relief cushion and reclined, brought to sitting position in chair with mod to max assist x 1 sat at edge of chair for 3 to 4 minutes while OT worked on UE activity. Increase retrograde pushing towards end of sessin pt becoming combative attempting to strike out. Deferred further activity repositioned in chair with chair alarm in place. Per nsg pt remains WBAT on RLE with heel ulcer as dry/intact/stable, will follow Josefina Edouard PT
--- NOTE | 2019-10-12 12:49 | NUR ---
Left Message for Renee Primer Inserting Machine Operator at [facility] to notify of need for PT or SNF upon return to facility at recommendation of therapy.
--- NOTE | 2019-10-12 13:18 | NUR ---
PHYSICAL THERAPY ON UNIT AT THIS TIME, CONCERNS AROSE OVER PT'S WEIGHT BEARING STATUS RELATED TO WOUND ON RIGHT HEEL. CALL PLACED BY THIS RN TO CAR GROOMER REGARDING THIS CONCERN. CAR GROOMER RECOMMENDS CLARIFICATION ON WEIGHT BEARING STATUS COME FROM PODIATRY OR INTERNAL MEDICINE PHYSICIAN. THIS RN SPOKE WITH FROM PODIATRY, STATES PT IS OK TO AMBULATE AND STATES HE WILL ENTER AN ORDER FOR WEIGHT BEARING TOLERATED.
--- NOTE | 2019-10-12 13:30 | NUR ---
Occupational therapy orders received and screening completed at this time. Patient was seated in the dheeraj chair with the alarm on at the start of the screen. Patient was lethargic throughout evaluation and refusing to open his eyes. Physical and verbal cues were provided and unable to successfully arouse the patient. Patient was resistive to allowing OTR to evaluate his hands at this time. OTR attempted PROM and used a warm washcloth and was unsuccessful. Patient cursed and attempted to swing his arms. Will attempt at a later date for a full OT evaluation. Per discussion with nursing, patient is WBAT on B/L LEs. Thank you for the referral. Maggie Cárdenas, OTR/L
--- NOTE | 2019-10-12 14:14 | NUR ---
Orders received from Dr. Denney for SNF or PT/OT to follow at facility. Faxed order to [facility] Attn:
--- NOTE | 2019-10-12 14:53 | NUR ---
PHYSICAL THERAPY CO-SIGN I approve of the Physical Therapy notes written above. Josefina Edouard PT
--- NOTE | 2019-10-12 16:24 | NUR ---
Clinical Updates faxed to [facility] Attn:
--- NOTE | 2019-10-12 17:53 | NUR ---
P- CONFUSION, POOR MEMORY RECALL, NAPPING INTERMITTENTLY, SELECTIVELY MUTE, BECOMES COMBATIVE WITH HANDS ON CARE, MOOD IRRITABLE, PT CURSING AT STAFF THIS MORNING WHILE PT/OT ATTEMPTED TO WORK WITH PT. I- ORIENTATION, MOOD AND BEHAVIOR ASSESSED. ASSESSED PT FOR SI/HI, INTENT OR PLAN. ASSESSED PT FOR S/S HALLUCINATIONS, PARANOIA AND/OR DELUSIONS. MEDICATIONS ADMINISTERED PER PHYSICIAN'S ORDERS. ASSISTANCE WITH ADL CARE PROVIDED NEEDED. ENCOURAGED PT TO ATTEND AND PARTICIPATE IN HEART MILIEU GROUPS AND ACTIVITIES APPROPRIATE. R- PT IS ALERT AND ORIENTED TO SELF ONLY, OTHERWISE CONFUSED. MEMORY GAPS NOTED. RESPS EASY AND EVEN ON ROOM AIR. PT RESTS A MAJORITY OF THE SHIFT WITH EYES CLOSED, AROUSES TO VERBAL/TACTILE STIMULI, SELECTIVELY MUTE AT TIMES. MOOD IS IRRITABLE, PT BECOMES COMBATIVE WITH HANDS ON CARE. PT BEGAN SWINGING AT STAFF, CURSING AND STATING "GET OUT OF HERE, LEAVE ME ALONE" UPON ATTEMPTS BY PT/OT TO WORK WITH PT. FREQUENT TURNING, REPOSITIONING AND INCONTINENCE CARE MAINTAINED BY STAFF. HEEL PROTECTOR BOOTS AND WHEELCHAIR CUSHION IN PLACE. PT HAS BEEN MED COMPLIANT THIS DATE WITHOUT DIFFICULTY. NO DISTRESS NOTED. P- PLAN TO CONTINUE CURRENT TREATMENT, CONTINUE TO MONITOR MOOD AND BEHAVIORS, PROVIDE APPROPRIATE REORIENTATION, REDIRECTION AND 1:1 NEEDED. CONTINUE TO ENCOURAGE MEDICATION COMPLIANCE WELL GROUP ATTENDANCE AND PARTICIPATION APPROPRIATE IN ACCORDANCE WITH PT CONDITION.
[2019-10-12 21:15] VITALS: BP 102/62
--- NOTE | 2019-10-12 21:15 | NUR ---
PATIENT ATTEMPTING TO AMBULATE WITHOUT ASSISTANCE IN ROOM. PATIENT UNSTEADY AND WHEN ATTEMPTING TO REDIRECT PATIENT, PATIENT COMBATIVE WITH CARE. PATIENT WITH SKIN TEARS ON BILATERAL UPPER EXTREMITIES. SKIN TEAR TO LEFT PROXIMAL FOREARM, LEFT DISTAL FOREARM, RIGHT ELBOW ELBOW, AND RIGHT FOREARM. DR RUBY UPDATED ABOUT SKIN TEARS AND AWAITING SKIN TEAR ORDERS. NURSING INSPECTION MANAGER UPDATED. POA-, FRAN ALSO UPDATED ABOUT SKIN TEARS. DRESSINGS APPLIED TO SITES
--- NOTE | 2019-10-13 02:55 | NUR ---
P-CONFUSION I-REDIRECTION WITH 1:1 THERAPEUTIC INTERVENTIONS AND PRESENT REALITY. EDUCATE AND ENCOURAGE MEDICATION COMPLIANCE R-PATIENT MEDICATION COMPLIANT. PATIENT CONTINUES TO WEAR BILATERAL HEEL PROTECTORS AND FEET ARE ELEVATED IN BED. PATIENT PROVIDED NOURISHMENT AND FLUIDS AT HS. PATIENT WITH SOFT, NONSENSICAL SPEECH AT TIMES. PATIENT STRIKING OUT AT NURSING STAFF WHEN ATTEMPTING TO PROVIDE CARE. P-CONTINUE TO ENCOURAGE MEDICATION COMPLIANCE, CONTINUE TO PRESENT REALITY, ENCOURAGE GROUP THERAPY WHILE AWAKE
--- NOTE | 2019-10-13 05:57 | NUR ---
PATIENT SLEPT 6 HOURS OF INTERRRUPTED SLEEP THROUGHOUT SHIFT. Q 15 MINUTE CHECKS MAINTAINED. 24 HR chart check completed.
[2019-10-13 07:36] VITALS: BP 108/57
--- NOTE | 2019-10-13 08:41 | NUR ---
DR. CALDWELL ON UNIT TO ASSESS PT, UPDATE PROVIDED.
--- NOTE | 2019-10-13 11:37 | NUR ---
AM GROUP/DIMITRY! PT IN ATTENDANCE BUT RESTING IN FELIX CHAIR ENTIRE GROUP. PT DID NOT WAKE, BUT WILL CONTINUE TO ATTEND FUTURE GROUP SESSIONS.
--- NOTE | 2019-10-13 15:45 | NUR ---
PM GROUP/ART/GAME PT IN ATTENDANCE BUT RESTED MOST OF GROUP. PT UNABLE TO PARTICIPATE AT THIS TIME DUE TO LEVELS OF COGNITION. [facility]HW SHOWERED AND SHAVED PT MIDWAY THROUGH GROUP AND BROUGHT PT BACK. PT RELAXING IN RECLINER AT THIS TIME. PT EXPRESSES NO ASSAULTIVE BEHAVIORS AT THIS TIME. PT WILL CONTINUE TO ATTEND FUTURE GROUP SESSIONS.
[2019-10-13 19:44] VITALS: BP 104/68
--- NOTE | 2019-10-14 00:47 | NUR ---
P-CONFUSION I-REDIRECTION WITH 1:1 THERAPEUTIC INTERVENTIONS AND PRESENT REALITY. EDUCATE AND ENCOURAGE MEDICATION COMPLIANCE R-PATIENT MEDICATION COMPLIANT. PATIENT CONTINUES TO WEAR BILATERAL HEEL PROTECTORS AND FEET ARE ELEVATED IN BED. SEAT CUSHION ON CHAIR WHEN OUT TO BED. PATIENT PROVIDED NOURISHMENT AND FLUIDS AT HS. PATIENT WITH SOFT, NONSENSICAL SPEECH AT TIMES. P-CONTINUE TO ENCOURAGE MEDICATION COMPLIANCE, CONTINUE TO PRESENT REALITY, ENCOURAGE GROUP THERAPY WHILE AWAKE
--- NOTE | 2019-10-14 06:16 | NUR ---
PATIENT SLEPT 8 HOURS OF INTERRUPTED SLEEP THROUGHOUT SHIFT. Q 15 MINUTE CHECKS MAINTAINED. 24 HR chart check completed.
[2019-10-14 07:49] VITALS: BP 106/55
--- NOTE | 2019-10-14 08:49 | NUR ---
DR CALDWELL ON UNIT TO ASSESS PT, UPDATE PROVIDED.
--- NOTE | 2019-10-14 11:55 | NUR ---
AM GROUP/EXERCISE/STORY/ART PT IN ATTENDANCE BUT SLEPT ENTIRE GROUP. PT WILL CONITNUE TO ATTEND FUTURE GROUP SESSIONS.
--- NOTE | 2019-10-14 12:12 | NUR ---
P: PT RESISITIVE WITH AM AND 1300 PO MEDS. PT OBSERVED TO BE PICKING AT UNSEEN OBJECTS IN THE AIR. PT RESTLESS AT TIMES. I: PROVIDE EMOTIONAL SUPPORT AND 1:1 VOR PT TO VOICE FEELINGS, ENCOURAGE MED COMPLIANCE, PRESENT REALITY AND RE-ORIENT. R: PT ALERT TO PERSON ONLY, CONFUSION AND SHORT TERM MEMORY DEFICITS NOTED PER PT BASELINE. PT CALM. PT MED COMPLIANT WITH MINIMAL DIFFICULTY. PT UNRECEPTIVE TO PRESENTATION OF REALITY AND RE-ORIENTATION D/T COGNITION. PT REMAINS RESTLESS AT TIMES THROUGHOUT THE SHIFT. PT UP TO A GERICHAIR D/T INABILITY TO AMBULATE INDEPENDENTLY AND LACK OF SAFETY AWARENESS. PT INCONTINENT OF BOWEL AND BLADDER. NO DELUSIONS NOTED. NO SUICIDAL THOUGHTS OR BEHAVIORS NOTED. P: PROVIDE EMOTIONAL SUPPORT AND 1:1 FOR PT TO VOICE FEELINGS, ENCOURAGE MED COMPLIANCE, ENCOURAGE GROUP PARTICIPATION AND SOCIALIZATION, PRESENT REALITY ADN RE-ORIENT NEEDED, MONITOR PT BEHAVIORS ON Q15 MIN SAFETY CHECKS.
[2019-10-14 19:37] VITALS: BP 110/56
--- NOTE | 2019-10-14 21:30 | NUR ---
Patient's bed alarm sounded. GAURAV Childress responded to find patient standing upright at bedside with 1 foot levi on right foot. Patient began to ambulate with staff assist up and down hallway. Mood pleasant and cooperative at first. Attempted to redirect to bed after 5 minutes of ambulation but patient refused. GAURAV Childress continued to ambulate him in hallway when he attempted to push GAURAV Childress toward a wall with lips puckered as to kiss. Redirected by GAURAV Mcgowan and GAURAV Childress. Patient became agitated intermittently in hallwaymunable to redirect to bed or chair at that time. When approached to redirect via 2 staff members,patient became aggressive by yanking and pulling away from staff. Also attempting to swing at staff members and lead security officer. Patient directed to chair with legs elevated. While attempting to get patient to sit,he was noted to be kicking legs and swinging arms at staff,hitting guard in face. No injuries noted to staff members or guard. Patient did attempt to twist and grab out with staff passing him.
--- NOTE | 2019-10-14 23:13 | NUR ---
Patient alert to self only with confusion. Patient resistive with hands on care. No signs of any responding to internal stimuli noted. Patient compliant with HS medication with much encouragement and meds crushed amd mixed in ice cream. Patient unreceptive to redirecting/reorienting due to decreased cognition. Plan to continue to encourage medication compliance. Continue to attempt to redirect/reorient when needed. Will continue to monitor moods/behaviors. Patient placed in bed due to patient being drowsy while in chair. Q 15 minute safety checks continued and maintained. See [facility] flowsheet for further documentation.
--- NOTE | 2019-10-15 04:07 | NUR ---
24 HR chart check completed.
--- NOTE | 2019-10-15 05:26 | NUR ---
Patient slept approx. 5 hours throughout shift. Q 15 minute safety checks continued and maintained.
--- NOTE | 2019-10-15 07:21 | NUR ---
JAH VICTORROSEMARIE [id number] Please refer to the physician's history and physical for past medical history, comorbid conditions, and allergies. Diagnosis: INTERMITTENT EXPLOSIVE DISORDER Barry Score: 18,AT RISK WOUND DESCRIPTIONS: ( new skin impairment ) Wound Number: 5 Location of the wound: left proximal forearm Type of wound: skin tear Thickness: Partial Size: 0.3cm x 0.8cm x 0.1cm Tunneling: none Undermining: none Sinus Tract: none Presence of Exudate: Serosanguineous Amount: Light Color: Red Odor: None Periwound Skin Appearance: Normal Wound edges: approximated Pain (associated with wound): none at time of assessment How does patient state this happened? pt unable to state how this happened Wound Number: 6 Location of the wound: left distal forearm Type of wound: skin tear Thickness: Partial Size: 0.3cm x 0.2cm x <0.1cm Tunneling: none Undermining: none Sinus Tract: none Presence of Exudate: none Amount: none Color: Red Odor: None Periwound Skin Appearance: Normal Wound edges: approximated Pain (associated with wound): none at time of assessment How does patient state this happened? pt unable to state how this happened Wound Number: 7 Location of the wound: right elbow Type of wound: skin tear Thickness: Partial Size: 0.4cm x 0.3cm x 0.1cm Tunneling: none Undermining: none Sinus Tract: none Presence of Exudate: Serosanguineous Amount: Light Color: Red Odor: None Periwound Skin Appearance: Normal Wound edges: approximated Pain (associated with wound): none at time of assessment How does patient state this happened? pt unable to state how this happened Wound Number: 8 Location of the wound: right forearm Type of wound: skin tear Thickness: Partial Size: 0.5cm x 0.2cm x 0.1cm Tunneling: none Undermining: none Sinus Tract: none Presence of Exudate: light Amount: Serosanguineous Color: Red Odor: None Periwound Skin Appearance: Normal Wound edges: approximated Pain (associated with wound): none at time of assessment How does patient state this happened? pt unable to state how this happened Wound Number: 9 Location of the wound: right elbow distal Type of wound: skin tear Thickness: Partial Size: 0.9cm x 0.8cm x 0.1cm Tunneling: none Undermining: none Sinus Tract: none Presence of Exudate: light Amount: Serosanguineous Color: Red Odor: None Periwound Skin Appearance: Normal Wound edges: approximated Pain (associated with wound): none at time of assessment How does patient state this happened? pt unable to state how this happened Wound Number: 10 Location of the wound: left elbow Type of wound: skin tear Thickness: Partial Size: 1.5cm x 1.2cm x 0.1cm Tunneling: none Undermining: none Sinus Tract: none Presence of Exudate: light Amount: Serosanguineous Color: Red Odor: None Periwound Skin Appearance: Normal Wound edges: approximated Pain (associated with wound): none at time of assessment How does patient state this happened? pt unable to state how this happened Surface the patient is resting on: Proform SKIN PREVENTION RECOMMENDATION: 1. Pressure redistribution support surface as appropriate 2. Elevate heels 3. Remove boots/TEDS every shift and reapply 4. Head of bed 30 degrees as tolerated 5. Assess nutrition and hydration 6. Manage moisture 7. Avoid the use of containment devices while in bed 8. Use absorptive products on surfaces limit layers of linens on bed 9. Turn and reposition every 1-2 hours in bed and every 1 hour in chair as tolerated 10. Weight shifts every 15 minutes while up in chair 11. Offloading with pillows or device to keep heels elevated off bed 12. Monitor skin at least every shift 13. Inspect under medical devices twice a day WOUND TREATMENT RECOMMENDATIONS: Clarify skin tear guidelines: Cleanse left proximal forearm, left distal forearm, right elbow, right forearm, right elbow distal, and left elbow with nss and apply sureprep around the wound hydrogel to wound bed and cover with optifoam gentle every 2 days and prn for soiling. Elbow protectors to bilateral elbows at all times expect for hygiene and skin assessments.
--- NOTE | 2019-10-15 07:30 | NUR ---
WOUND NURSE REPORTED THAT PATIENT HAS 2 NEW SKIN TEARS. #1 LEFT ELBOW, #2 RIGHT ELBOW-DISTAL. PATIENT IS ALERT TO SLEF WITH CONFUSION. PATIENT WEARING TUBI MOUNTER SMOKING PIPE TO BILATERAL ARMS FOR SKIN PROTECTION. DR. CHANDLER NOTIFIED OF AREA AND TREATMENTS ARE IN PLACE. BILATERAL ELBOW PROTECTOR PROVIDE. KAREN, NURSING ENROBER TENDER NOTIFIED. MESSAGE LEFT FOR SPOUSE TO RETURN CALL.
--- NOTE | 2019-10-15 07:40 | NUR ---
Occupational therapy orders received and OT evaluation completed in full on floor three. Patient precautions include fall risk, dheeraj chair use, VANSTONE MACHINE OPERATOR, chair alarm, decreased command follow, and poor visual tracking skills. Patient demonstrated B/L hand contractures, OTR seeking to get B/L palm crespo to prevent skin breakdown. Per OT evhans, OT recommends patient return to his LTC facility[place], [id number]. Thank you for the referral. Maggie Cárdenas, OTR/L
--- NOTE | 2019-10-15 07:45 | NUR ---
PHYSICAL THERAPY Patient seen this am for therapy visit and was sitting up in activity room Mellisa chair upon therapist arrival. Patient identified by name / and presented with bouts of anxious moments, quickly reaching out to unseen objects and mumbling. Patient needed constant redirecting and focus on task and was joined by OTR for observation only this session. Patient also presented with B UE hand contractures and transfers sit to stand GRILL ATTENDANT/MOD x 2. Patient ambulates GRILL ATTENDANT/MIN x 2, demonstrating slow korin, decreased stride and unsteady gait pattern. Patient easily distracted by external stimuli and returned to Mellisa chair 30'x 1. Patient remained semi reclined in Mellisa chair with lap tray and body alarm in activity room under [facility] staff Supervision. Will continue per POC as tolerated, total treatment time 14 minutes. Shlomo Degroot, INJECTION WAX MOLDER
--- NOTE | 2019-10-15 08:00 | NUR ---
Treatment Plan held this a.m. with ANA Medley, RN, AT, CLEANING ATTENDANT-S and Adult School Counselor. Plan for discharge Tue/ with return to [facility].
[2019-10-15 08:08] VITALS: BP 116/65
--- NOTE | 2019-10-15 10:05 | NUR ---
DR. SÁNCHEZ ON UNIT TO ASSESS PATIENT.
--- NOTE | 2019-10-15 10:06 | NUR ---
Dr. Ladd notified of wound care recommendations.
--- NOTE | 2019-10-15 11:40 | NUR ---
NO AM GROUP
--- NOTE | 2019-10-15 11:56 | NUR ---
RETURNED CALL FOR SPOUSE WITH UPDATED.
--- NOTE | 2019-10-15 13:19 | NUR ---
PATIENT IS ALERT TO PERSON WITH CONFUSION. LONG/SHORT TERM MEMORY DEFICITS. NO VOICED STATEMENT OF HI/SI OR PAIN. NO RESPONSE TO INTERNAL STIMULI OBSERVED. MOOD IS STABLE. MEDICATION COMPLAINT. Q 15 MINUTE SAFETY CHECKS. 2 PERSON ASSIST WITH ACTIVITIES OF DAILY LIVING, INCONTINENT OF BOWEL AND BLADDER. SET UP FOR MEALS. ONE PERSON ASSIST WITH MEALS, INTAKES ARE GOOD WITH AQEQUATE FLUIDS. INTERACTIVE WITH NURSING STAFF. CONTINUE TO MONITOR FOR EXIT SEEKING AND AGGRESSION. PROVIDE ONE ON ONE AND REDIRECTION.
--- NOTE | 2019-10-15 15:11 | NUR ---
Shift chart check completed.
--- NOTE | 2019-10-15 15:42 | NUR ---
PM GROUP PT WAS PRESENT FOR AFTERNOON GROUP THERAPY RECLINED IN A FELIX CHAIR SLEEPING. PT IS UNABLE TO PARTICIPATE IN GROUP AT THIS TIME DUE TO COGNITIVE IMPAIRMENT.
--- NOTE | 2019-10-15 19:34 | NUR ---
NOTE ON 10/07/19 AT 2230PM IS NOT TO BE ON THIS CLIENT. THIS IS THE WRONG CLIENT
[2019-10-15 19:36] VITALS: BP 109/67
--- NOTE | 2019-10-15 21:46 | NUR ---
CLIENT HAD COMPLETE SHOWER THEN MEDICATIONS. ISOLATIVE TO SELF. MINIMAL TALKING TO STAFF MOSTLY MUTE. HAS BEEN UP IN REGULAR CHAIR ALL SHIFT. IN WITH ACTIVITIES BUT DIDN'T PARTICIPATE. WALKS WITH ONE ASSIST BUT UNSTEADY
--- NOTE | 2019-10-16 01:25 | NUR ---
24 HR chart check completed.
--- NOTE | 2019-10-16 06:06 | NUR ---
SLEPT WELL APPROX 7.5 UNINTERUPTED
--- NOTE | 2019-10-16 07:35 | NUR ---
OT NOTE Pt was seen this A.M. 1:1 for 15 minute OT session with STENOTYPE MACHINE OPERATOR and nursing staff present for observation only. Upon arrival pt was sitting upright in the w/c in the dining serna. Pt identified by name and on wristband. Pt was taken out into the hallway where he completed sit to stand from chair level with Mandi Clark 2. Challenged pt's static standing tolerance needed for increased I in self care tasks and functional transfers, pt was able to tolerate aprox 3 minutes at a time before sitting due to fatigue. Functional mobility was then completed to the bathroom with Mandi CLEMENTE. Attempted to complete PROM to B digits and pt was unable to tolerate any more than one finger under his. Pt was very resistive throughout ROM. Pt was left sitting upright in the dining serna in the w/c under [facility] staff supervision. Continue with POC as able. KAREN Chen/Benoit
--- NOTE | 2019-10-16 07:35 | NUR ---
PHYSICAL THERAPY Patient seen this am 1:1 for therapy visit and was sitting up in his w/c within activity room upon therapist arrival. Patient identified by name / and presented with B heel protectors. Patient able to verbalize response to therapist request with short 2-3 word exhanges. Patient performed several sit to stand transfers at handrail with SILICA MIXER OPERATOR/MIN and able to ambulate 75'x 1, SILICA MIXER OPERATOR/MIN, including single handrail support. Patient demonstrated "waddling" gait pattern, decreased stride and very unsteady during all turns. Patient remains a high risk for falls and returned to w/c at table in activity room awaiting breakfast under [facility] staff Supervision. Will continue per POC as tolerated, total treatment time 14 minutes. Shlomo Degroot, BATH DESIGN SALES CONSULTANT
[2019-10-16 07:38] VITALS: BP 138/76
--- NOTE | 2019-10-16 08:34 | NUR ---
Dr. Ladd notified of wound care recommendations.
--- NOTE | 2019-10-16 10:00 | NUR ---
DR. TELLEZ ON UNIT TO ASSESS PATIENT.
--- NOTE | 2019-10-16 11:40 | NUR ---
AM GROUP/SHANNON LEDESMA PT WAS PRESENT FOR MORNING GROUP THERAPY BUT IS UNABLE TO PARTICIPATE DUE TO COGNITIVE IMPAIRMENT. PT SAT IN WHEELCHAIR AND LISTENED TO MUSIC OR NAPPED. PT EXHIBITED NO AGITATION OR AGGRESSION WHILE IN GROUP.
--- NOTE | 2019-10-16 14:43 | NUR ---
Treatment Plan meeting was held with Dr. Denney, ANA Medley, RN, AT, GEOLOGIST PETROLEUM-S and Manager Philosophy in attendance. Plan for discharge with return to [facility].
--- NOTE | 2019-10-16 15:37 | NUR ---
PM GROUP PT WAS PRESENT FOR AFTERNOON GROUP THERAPY SITTING IN A WHEELCHAIR AT THE TABLE SOUND ASLEEP. PT DID NOT WAKE DURING GROUP.
--- NOTE | 2019-10-16 17:15 | NUR ---
P: AGGRESSIVE WITH HANDS ON CARE FOR TOILETING NEEDS. I: ONE ON ONE, VERBAL CUEING AND DIRECTION. R: EFFECTIVE; 3 PERSON ASSIST WITH HANDS ON CARE. PATIENT IS ALERT TO PERSON WITH CONFUSION. LONG/SHORT TERM MEMORY DEFICITS. MOOD IS PLEASANT, CALM DEMEANOR. ONE EPISODE OF AGGRESSION AFTER DINNER. MEDICATION COMPLAINT. Q 15 MINUTE SAFETY CHECK. 2 PERSON ASSIST WITH ACTIVITIES OF DAILY LIVING, INCONTINENT OF BOWEL AND BLADDER. SET UP FOR MEALS, INTAKES ARE GOOD. P: CONTINUE TO MONITOR FOR AGGRESSION, MEDICATION COMPLIANCE. PROVIDE ONE ON ONE AND REDIRECTION NEEDED.
[2019-10-16 20:00] VITALS: BP 125/74
--- NOTE | 2019-10-16 22:54 | NUR ---
Patient alert to self only with confusion. Mood calm at this time. No signs of any responding to internal stimuli noted. Patient compliant with HS medication with much encouragement and meds crushed amd mixed in ice cream. Patient unreceptive to redirecting/reorienting due to decreased cognition. Plan to continue to encourage medication compliance. Continue to attempt to redirect/reorient when needed. Will continue to monitor moods/behaviors. Patient placed in bed due to patient being drowsy while in chair. Q 15 minute safety checks continued and maintained. See [facility] flowsheet for further documentation.
--- NOTE | 2019-10-17 00:58 | NUR ---
24 HR chart check completed.
--- NOTE | 2019-10-17 05:55 | NUR ---
Patient slept approx. 8 hours throughout shift. Q 15 minute safety checks continued and maintained.
--- NOTE | 2019-10-17 07:31 | NUR ---
OT NOTE Attempted to see pt this A.M. for OT session and upon arrival pt was sitting semi reclined in the neymar chair in the dining serna. Pt was unable to arouse to verbal or tactile stimuli. Will check back at a later time/date and continue with POC as able. KAREN Chen/Benoit
[2019-10-17 07:34] VITALS: BP 121/65
--- NOTE | 2019-10-17 08:00 | NUR ---
Treatment Plan meeting was held with Dr. Denney, ANA Medley RN, CERTIFIED CAREGIVER-S and Web Design Intern in attendance. Plan for discharge when stable with return to [facility].
--- NOTE | 2019-10-17 12:40 | NUR ---
PHYSICAL THERAPY Patient seen this pm for therapy visit and was semi reclined in activity room Mellisa chair upon therapist arrival. Patient identified by name / and had a hard time of keeping his eyes open. OT food and beverage assistant was present for observation only as patient needed repeated verbal / tactile cues for active participation. Patient also presented with increased Hypertonic B LE's, tolerating several minutes of PROM to improve ROM in all planes. Patient transfered sit to stand Min/NUCLEAR CARDIOLOGY TECHNOLOGIST x 2 and ambulated NUCLEAR CARDIOLOGY TECHNOLOGIST/MIN, 20'x 1 to bathroom, then additional 50'x 1, demonstrating decreased stride with "waddling" gait pattern. Patient severe B UE hand flexion contracture and required multiple v/c's to complete all therapy task. Patient returned to Mellisa chair in activity room with lap tray / body alarm, under [facility] staff Supervision. Will continue per POC as tolerated, total treatment time 16 minutes. Shlomo Degroot, ALUMNI RELATIONS COORDINATOR
--- NOTE | 2019-10-17 12:52 | NUR ---
OT NOTE Pt was seen this P.M. 1:1 for 15 minute OT session with PIPE CHIPPER and nursing staff present for observation only. Upon arrival pt was sitting upright in the neymar chair. Pt identified by name and and had no complaints at this time. Pt completed sit to stand from chair level with Mandi X 2 followed by functional mobility to the bathroom with Mandi X 2 COLOR TESTER with constant verbal prompts for keeping his eyes open. Pt transferred on/off standard commode with modA. Attempted to completed PROM to B digits and pt was unable to tolerate any more than a finger under his. Pt was left sitting upright in the neymar chair with body alarm activated for safety, lap tray in place, and under [facility] staff supervision. Continue with POC as able. KAREN Chen/Benoit
--- NOTE | 2019-10-17 13:55 | NUR ---
NO ADVERSE MOODS OR BEHAVIORS NOTED THIS SHIFT. PT ALERT TO PERSON ONLY, CONFUSION AND SHORT TERM MEMORY DEFICITS NOTED PER PT BASELINE. PT MED COMPLIANT WITHOUT DIFFICULTY, UNABLE TO PROVIDE MED EDUCATION D/T COGNITION. PT CALM, MOOD IS STABLE. PT PLEASASNT WITH STAFF AND PEERS.NO HALLUCINATIONS OR DELUSIONS NOTED. NO SUICIDAL THOUGHTS OR BEHAVIORS NOTED. PT UP TO A GERICHAIR D/T INABILITY TO AMBULATE INDEPENDENTLY. PT WILL AMBULATE SHORT DISCTANCES WITH 2 STAFF ASSIST. PT INCONTINENT OF BOWEL AND BLADDER, CARE PROVIDED NEEDED. PLAN IS TO MONITOR PT BEHAVIORS N Q15 MIN SAFETY CHECKS, ENCOURAGE MED COMPLIANCE, PROVIDE EMOTIONAL SUPPORT AND 1:1 FOR PT TO VOICE FEELINGS.
--- NOTE | 2019-10-17 15:32 | NUR ---
OCCUPATIONAL THERAPY CO-SIGN I approve of the Occupational Therapy notes written above. Maggie Cárdenas, OTR/L
--- NOTE | 2019-10-17 16:50 | NUR ---
PT IS A POSSIBLE DISCHARGE FOR TOMORROW, DISCHARGE PHOTOS TAKEN AT THIS TIME.
[2019-10-17 19:38] VITALS: BP 118/64
--- NOTE | 2019-10-17 22:28 | NUR ---
P-CONFUSION I-REDIRECTION WITH 1:1 THERAPEUTIC INTERVENTIONS AND PRESENT REALITY. EDUCATE AND ENCOURAGE MEDICATION COMPLIANCE R-PATIENT MEDICATION COMPLIANT. PATIENT CONTINUES TO WEAR BILATERAL HEEL PROTECTORS AND FEET ARE ELEVATED IN BED. PATIENT PROVIDED NOURISHMENT AND FLUIDS AT HS. PATIENT WITH SOFT, NONSENSICAL SPEECH AT TIMES. P-CONTINUE TO ENCOURAGE MEDICATION COMPLIANCE, CONTINUE TO PRESENT REALITY, ENCOURAGE GROUP THERAPY WHILE AWAKE
--- NOTE | 2019-10-18 06:15 | NUR ---
PATIENT SLEPT 7 HOURS OF INTERRUPTED SLEEP THROUGHOUT SHIFT. Q 15 MINUTE CHECKS MAINTAINED. 24 HR chart check completed.
[2019-10-18 08:00] VITALS: BP 105/59
[2019-10-18] MEDS ORDERED: DIVALPROEX SOD125 M1 PO ×2 (08:32)
[2019-10-18] MEDS ORDERED: VITAMIN D32000 UNI1 PO (08:32)
[2019-10-18] MEDS ORDERED: HYDROXYZINE PAM25 M1 PO (08:32)
[2019-10-18] MEDS ORDERED: MIRTAZAPINE15 M2 PO (08:32)
[2019-10-18] MEDS ORDERED: LACTULOSE20 GM/30 M PO (08:32)
[2019-10-18] MEDS ORDERED: EXELON13.3 MG/21 T (08:32)
[2019-10-18] MEDS ORDERED: MEMANTINE HCL10 MG PO (08:32)
--- NOTE | 2019-10-18 08:46 | NUR ---
SPOKE WITH DR JAMES RE: PT DISCHARGE FOR THIS AFTERNOON.
--- NOTE | 2019-10-18 10:58 | NUR ---
NO ADVERSE MOODS OR BEHAVIORS NOTED. PT ALERT TO PERSON ONLY, CONFUSION AND SHORT TERM MEMORY DEFICITS NOTED. PT MED COMPLIANT WITHOUT DIFFICULTY. PT CALM, MOOD IS STABLE. NO HALLUCINATIONS OR DELUSIONS NOTED. NO SUICIDAL THOUGHTS OR BEHAVIORS. PT UP TO A GERICHAIR, WILL AMBULATE SHORT DISTANCES WITH 2 STAFF ASSIST. PT INCONTINENT OF BOWEL AND BLADDER, CARE PROVIDED NEEDED. PLAN IS TO MONITOR PT BEHAVIOR SON Q15 MIN SAFETY CHECKS, ENCOURAGE MED COMPLIANCE AND PREPARE PT FOR DISCHARGE.
--- NOTE | 2019-10-18 11:23 | NUR ---
Call placed to [facility] message for Judi to notify of picker operator time for 3:00 p.m. Discharge via [facility] Faxed Discharge Paperwork to [phone].
--- NOTE | 2019-10-18 11:32 | NUR ---
DR TELLEZ ON UNIT TO ASSESS PT, UPDATE PROVIDED.
--- NOTE | 2019-10-18 11:36 | NUR ---
AM GROUP PT ATTENDED MORNING GROUP THERAPY AND PARTICIPATED BY SOCIALIZING WITH THIS FUNERAL LOCATION MANAGER. PT IS VERY SOFT SPOKEN BUT WAS RELEVENT AND ON TOPIC
--- NOTE | 2019-10-18 13:00 | NUR ---
SPOKE WITH DR JAMES RE: PT DC TIME CHANGE AND MEDICAL MEDS NEEDING COMPLETED.
--- NOTE | 2019-10-18 13:04 | NUR ---
NURSE TO NURSE REPORT GIVEN TO HERO AT [facility]. ADVISED OF PT SKIN ISSUES. PT TO BE PICKED UP WITHIN 45 MINS.
--- NOTE | 2019-10-18 13:40 | NUR ---
PT DISCHARGED TO [facility] VIA [facility]. PT BELONGINGS AND DISCHARGE PAPERWORK SENT WITH PT.
--- NOTE | 2019-10-19 07:52 | NUR ---
PHYSICAL THERAPY CO-SIGN I approve of the Physical Therapy notes written above. Josefina Edouard PT
== END 2019-10-18 13:40 | disposition other institution (70) | DRG 883 ==
LOC: 3N 15:47
PROVIDERS: Counselor Professional; ADMIT Psychiatry & Neurology Psychiatry
DX: F63.81 Intermittent explosive disorder (principal); F33.9 Major depressive disorder, recurrent, unspecified; I50.32 Chronic diastolic (congestive) heart failure; F02.81 Dementia in other diseases classified elsewhere, unspecified severity, with behavioral disturbance; N39.0 Urinary tract infection, site not specified; G30.9 Alzheimer's disease, unspecified; G20 Parkinson's disease; M24.542 Contracture, left hand; F25.1 Schizoaffective disorder, depressive type; M24.541 Contracture, right hand; I25.10 Atherosclerotic heart disease of native coronary artery without angina pectoris; E78.5 Hyperlipidemia, unspecified; K59.00 Constipation, unspecified; D53.9 Nutritional anemia, unspecified; F41.9 Anxiety disorder, unspecified; E87.8 Other disorders of electrolyte and fluid balance, not elsewhere classified; E55.9 Vitamin D deficiency, unspecified; I11.0 Hypertensive heart disease with heart failure; B35.1 Tinea unguium; S90.821A Blister (nonthermal), right foot, initial encounter; X58.XXXA Exposure to other specified factors, initial encounter; Z79.899 Other long term (current) drug therapy; Y93.89 Activity, other specified